=== PATIENT | female | born 1980 | race Caucasian/White ===

== ENCOUNTER 2021-02-14 19:34 | Emergency (ER) | payer OTHER ==
[2021-02-14 21:05] LABS: HEMOGLOBIN 16.4 gm/dl (12.3-15.3); RED BLOOD COUNT 5.51 M/UL (4.00-5.10); WHITE BLOOD COUNT 10.6 K/UL (4.5-11.0)
[2021-02-14 21:29] LABS: BUN/CREATININE RATIO 14 (0-10)
== END 2021-02-15 09:15 | disposition short-term general hospital (02) ==
LOC: ER1 19:34
PROVIDERS: Emergency Medicine
DX: I70.201 Unspecified atherosclerosis of native arteries of extremities, right leg (principal); I70.202 Unspecified atherosclerosis of native arteries of extremities, left leg; I10 Essential (primary) hypertension; E11.51 Type 2 diabetes mellitus with diabetic peripheral angiopathy without gangrene; F17.200 Nicotine dependence, unspecified, uncomplicated; Z20.822 Contact with and (suspected) exposure to COVID-19; Z91.041 Radiographic dye allergy status
CPT/HCPCS: 80053; 82550; 82553; 83735; 84703; 85025; 85610; 85730; 93925; 96374; 99285; J1644; U0002